=== PATIENT | female | born 1960 | race Caucasian/White ===

== ENCOUNTER → 2024-06-06 11:23 | Outpatient (CLI) | payer OTHER, SELFPAY ==
--- NOTE | 2024-06-06 11:26 | DI.RAD.S_ITS ---
PROCEDURE: XR CHEST 2V INDICATIONS: Cough TECHNIQUE: 2 views of the chest were acquired. COMPARISON: None. FINDINGS: Surgical changes and devices: None. Lungs and pleura: No dense consolidation or pleural effusions. Mediastinum: Normal heart size Bones and chest wall: Unremarkable IMPRESSION: No acute radiographic abnormality. Dictated by: Garrick Adkins M.D. on 06/06/2024 at 10:45 Approved by: Garrick Adkins M.D. on 06/06/2024 at 10:46
== END ==
LOC: RAD 11:26
PROVIDERS: Referring Provider Nurse Practitioner Family; Visit Provider Nurse Practitioner Family
DX: R05.9 Cough, unspecified (principal)
CPT/HCPCS: 71046